=== PATIENT | male | born 1955 | race Caucasian/White ===

== ENCOUNTER 2017-12-31 04:56 | Emergency (ER) | END 2017-12-31 08:20 | disposition home or self-care (01) ==

== ENCOUNTER 2018-01-06 14:48 | Emergency (ER) | END 2018-01-06 18:20 | disposition left against medical advice (07) ==

== ENCOUNTER 2018-01-07 18:53 | Inpatient (IN) | END 2018-01-12 18:02 | disposition home or self-care (01) | DRG 871 ==